=== PATIENT | female | born 1985 | race African-American/Black ===

== ENCOUNTER 2024-10-22 01:45 | Emergency (ER) | payer MEDICAID ==
[~2024-10-22] VITALS: Ht 157.5 cm; Wt 77.0 kg
[~2024-10-22 01:45] MED LIST: ALBU2.5V13
[2024-10-22 01:50] VITALS: TEMP 37.1
[2024-10-22] MEDS: NEOMYCIN/BACITRACIN/POLYMYXIN OINT 14GM TOP STA (02:10)
[2024-10-22 02:34] LABS: BASOPHILS % 0.6 % (0.0-2.0); EOSINOPHILS % 0.5 % (0.0-5.0); HEMATOCRIT. 33.6 % (36.0-48.0); HEMOGLOBIN. 10.7 g/dL (12.0-16.0); LYMPHOCYTES % 14.7 % (20.0-50.0); MEAN PLATELET VOLUME 9.0 fl (7.4-10.4); MONOCYTES % 4.4 % (2.0-8.0); NEUTROPHILS % 79.8 % (40.0-76.0); PLATELET 343 x1000/uL (130-400); RED BLOOD CELL COUNT 3.94 mill/uL (4.2-5.4); RED CELL DISTRIBUTION WIDTH 18.0 % (11.6-14.6)
[2024-10-22] MEDS: HYDROMORPHONE HCL/PF 2MG/ML INJ IV ONE ×2 (02:42→03:58)
[2024-10-22] MEDS: NEOMYCIN/BACITRACIN/POLYMYXIN OINT 14GM TOP NR (02:42)
[2024-10-22] MEDS: ONDANSETRON HCL 4MG/2ML INJ IV ONE (02:42)
[2024-10-22] MEDS: SODIUM CHLORIDE 0.9% 1,000 ML IV ONE (02:42)
[2024-10-22 02:48] LABS: CREATININE 0.9 mg/dL (0.6-1.0)
[2024-10-22 02:49] LABS: UREA NITROGEN BLOOD 10 mg/dL (9-23)
[2024-10-22 03:57] VITALS: O2SAT 98
[2024-10-22] MEDS: MIDAZOLAM HCL 2 MG/2 ML VIAL IV ONE (03:57)
[2024-10-22] MEDS ORDERED: HYDR-4009 MT (05:17)
[2024-10-22 05:45] VITALS: BP 206/127; PULSE 80; RESP 18; O2SAT 98
== END 2024-10-22 06:01 | disposition home or self-care (01) ==
LOC: ER 01:45
DX: T21.11XA Burn of first degree of chest wall, initial encounter (principal); T23.111A Burn of first degree of right thumb (nail), initial encounter; T22.141A Burn of first degree of right axilla, initial encounter; T31.0 Burns involving less than 10% of body surface; X08.8XXA Exposure to other specified smoke, fire and flames, initial encounter; Y93.89 Activity, other specified; Y92.89 Other specified places as the place of occurrence of the external cause; Y99.8 Other external cause status
CPT/HCPCS: 80048; 85025; 36415; 16020; 96361; 96374; 96375; 96376; 99284; J2250; J2405; J1171; J7030; Z7610 ×2